=== PATIENT | female | born 1975 | race Caucasian/White ===

== ENCOUNTER 2016-12-27 16:26 | Emergency (ER) | payer OTHER ==
[~2016-12-27] VITALS: Ht 175.3 cm; Wt 96.3 kg
[~2016-12-27 16:26] MED LIST: [UNRECOGNIZED DRUG - CODE]
[2016-12-27 16:33] VITALS: BP 140/99
== END 2016-12-27 17:43 | disposition home or self-care (01) ==
LOC: ED 16:26
DX: K04.7 Periapical abscess without sinus (principal); L23.9 Allergic contact dermatitis, unspecified cause

== ENCOUNTER 2017-02-07 07:52 | Emergency (ER) | payer OTHER ==
[~2017-02-07] VITALS: Ht 175.3 cm; Wt 94.9 kg
[2017-02-07 08:20] VITALS: BP 128/87
== END 2017-02-07 08:20 | disposition home or self-care (01) ==
LOC: ED 07:52
DX: K92.89 Other specified diseases of the digestive system (principal); T78.1XXA Other adverse food reactions, not elsewhere classified, initial encounter; R07.0 Pain in throat; X58.XXXA Exposure to other specified factors, initial encounter; J45.909 Unspecified asthma, uncomplicated
CPT/HCPCS: J1200